=== PATIENT | male | born 1990 | race Caucasian/White ===

== ENCOUNTER 2017-04-18 01:23 | Emergency (ER) | payer MEDICAID, OTHER ==
[~2017-04-18] VITALS: Ht 167.6 cm; Wt 86.6 kg
[2017-04-18] MEDS ORDERED: ALBUTEROL SULFATE 2.5 MG/3 ML ONE (01:57)
[2017-04-18] MEDS ORDERED: ALBUTEROL SULFATE 2.5 MG/3 ML NPPB ONE (02:00)
[2017-04-18 03:24] VITALS: BP 127/84
== END 2017-04-18 03:25 | disposition home or self-care (01) ==
LOC: ED 03:21
DX: J20.9 Acute bronchitis, unspecified (principal); J01.00 Acute maxillary sinusitis, unspecified; Z88.0 Allergy status to penicillin; Z87.891 Personal history of nicotine dependence
CPT/HCPCS: 71020; 94640; 99284; J7613